=== PATIENT | male | born 1990 | race Caucasian/White ===

== ENCOUNTER 2021-07-09 14:47 | Emergency (ER) | payer BC, SELFPAY ==
--- NOTE | 2021-07-09 14:47 | ECG_ITS ---
APPROVED REPORT Exam: Resting ECG HR:72 bpm ECG Measurements Heart Rate 72 AXES NJ 134 P 19 QRSd 88 QRS 27 QT 388 T -4 QTc 424 Conclusion Normal sinus rhythm Possible Inferior infarct, age undetermined Abnormal ECG Electronically signed by : Frankie Alegria MD 07/11/2021 12:20:33
[2021-07-09 15:13] VITALS: BP 121/72; PULSE 66; RESP 14; O2SAT 99; BMI 33.3
[2021-07-09 16:31] VITALS: BP 112/83; PULSE 59; RESP 22; O2SAT 96
--- NOTE | 2021-07-09 16:34 | XR_ITS ---
PROCEDURE INFORMATION: Exam: XR Chest Exam date and time: 07/09/2021 4:34 PM Age: 31 years old Clinical indication: Sternal or substernal pain; Patient HX: Patient awoke with sharp chest pain this morning. No chest surgeries, non-smoker. Prior HX of hypertension per patient. TECHNIQUE: Imaging protocol: XR of the chest. Views: 2 views. COMPARISON: No relevant prior studies available. FINDINGS: Lungs: Unremarkable. No consolidation. Pleural spaces: Unremarkable. No pleural effusion. No pneumothorax. Heart/Mediastinum: Unremarkable. No cardiomegaly. Bones/joints: Unremarkable. IMPRESSION: No acute findings.
[2021-07-09 16:52] LABS: Basophils # 0.1 K/mm3 (0-0.2); Basophils % 1.9 % (0.1-2.0); Eosinophils # 0.1 K/mm3 (0.0-0.4); Eosinophils % 2.1 % (0.1-12.0); Hematocrit 40.8 % (42.0-52.0); Hemoglobin 14.2 g/dL (14.1-18.0); Lymphocytes # 2.2 K/mm3 (0.7-4.5); Lymphocytes % 36.4 % (10-50); Mean Corpuscular HGB Conc 34.8 g/dL (31.8-35.4); Mean Corpuscular Hemoglobin 30.5 pg (27.0-31.2); Mean Corpuscular Volume 87.6 fl (80-94); Mean Platelet Volume 8.8 fl (7.4-10.4); Monocytes # 0.4 K/mm3 (0.1-1.0); Monocytes % 6.8 % (1.7-9.3); Neutrophils # 3.2 K/mm3 (1.8-7.8); Neutrophils % 52.8 % (37.0-80.0); Platelet Count 315 K/mm3 (142-424); Red Blood Count 4.66 M/mm3 (4.60-6.20)
[2021-07-09 17:00] VITALS: BP 129/70; PULSE 62; RESP 18; O2SAT 98
--- NOTE | 2021-07-09 17:08 | HMH.EDGENADL ---
ED Disposition Clinical Impression: Atypical chest pain Disposition: Home, Self-Care Condition on Discharge: Good Instructions: DI for Atypical Chest Pain Additional Instructions: Ibuprofen for pain. Additional instructions for CHEST PAIN: See your physician as soon as possible for further evaluation. Return immediately if worsening chest pain, vomiting, shortness of breath, fever, coughing of blood. Referrals: Provider,Referral, [Primary Care Provider] - - Critical Care Critical Care Time: No Attestation: On 07/09/21, the high probability of a clinically significant, sudden or life threatening deterioration of the following system(s) required my full and direct attention, intervention and personal management. The time I documented below is in addition to time spent performing reported procedures but includes the following listed in this critical care notation. Medical Decision Making - Alexys Inquiry Pt receiving controlled substance: No Vital Signs: 07/09/21 15:13 07/09/21 16:31 07/09/21 17:00 Pulse Rate 59 L 62 Pulse Rate [Left] 66 Respiratory Rate 14 22 18 Blood Pressure 112/83 129/70 Blood Pressure [Right Arm] 121/72 Blood Pressure Mean 86 95 Blood Pressure Mean [Right Arm] 88 02 Sat by Pulse Oximetry 99 96 98 - Lab Data Lab Results 07/09/21 15:11: WBC 6.0, RBC 4.66, Hgb 14.2, Hct 40.8 L, MCV 87.6, MCH 30.5, MCHC 34.8, RDW 13.0, Plt Count 315, MPV 8.8, Neut % (Auto) 52.8, Lymph % (Auto) 36.4, Barnes % (Auto) 6.8, Eos % (Auto) 2.1, Baso % (Auto) 1.9, Neut # (Auto) 3.2, Lymph # (Auto) 2.2, Barnes # (Auto) 0.4, Eos # (Auto) 0.1, Baso # (Auto) 0.1 07/09/21 15:11: Sodium 138, Potassium 4.3, Chloride 103, Carbon Dioxide 30, Anion Gap 9.3, BUN 13, Creatinine 1.00, Estimated Creat Clear 182, Estimated GFR 88, Est GFR ( Amer) 107, Glucose 86, Calcium 8.8, Troponin I < 0.01 07/09/21 18:15: Troponin I < 0.01 Result diagrams: 07/09/21 15:11 07/09/21 15:11 Orders (Tests/Meds): ED MEDICATIONS Discontinued Medications Generic Name Dose Route Start Last Admin Trade Name Ray PRN Reason Stop Dose Admin Aspirin 324 mg 07/09/21 16:35 07/09/21 16:38 Aspirin 81mg Chewable Tablet PO 07/09/21 16:36 324 mg ONCE ONE Administration ORDERS Category Date Time Status Troponin I Q3H Lab 07/09/21 22:45 Ordered - Radiology Data #1 Image(s): Chest Image Reviewed: Yes I reviewed the patient's radiology image, Yes I have reviewed radiologist's interpretation PROCEDURE INFORMATION: Exam: XR Chest Exam date and time: 07/09/2021 4:34 PM Age: 31 years old Clinical indication: Sternal or substernal pain; Patient HX: Patient awoke with sharp chest pain this morning. No chest surgeries, non-smoker. Prior HX of hypertension per patient. TECHNIQUE: Imaging protocol: XR of the chest. Views: 2 views. COMPARISON: No relevant prior studies available. FINDINGS: Lungs: Unremarkable. No consolidation. Pleural spaces: Unremarkable. No pleural effusion. No pneumothorax. Heart/Mediastinum: Unremarkable. No cardiomegaly. Bones/joints: Unremarkable. IMPRESSION: No acute findings. - ECG Data Tracing #1 EKG interpreted by Christiano Mast MD: Rhythm: sinus Rate: 72 [place]: normal Ectopy: none Conduction: normal ST Segment Changes: none T Wave Changes: Nonspecific Q Waves: none No prior EKGs available for comparison. - NORA Score for Non-Stemi Age of Patient: <30 years old Heart Rate: 50-69 bpm Systolic Blood Pressure: 120-139 mmhg Serum Creatinine: 0.80-1.19 mg/dl CHF [place] Class: I-No CHF Other Risk Factors: None Non-Stemi Risk Score: 44 Medical Decision Narrative: 7:09 PM: Patient says he feels good, would like to be discharged. Second troponin is negative. Chest pain is atypical. I feel he can be discharged for outpatient follow-up. General Adult HPI
[2021-07-09 17:17] LABS: Anion Gap 9.3 mEq/L (5-15); Blood Urea Nitrogen 13 mg/dl (9-20); Calcium 8.8 mg/dl (8.4-10.2); Carbon Dioxide 30 mmol/L (22.0-30.0); Chloride 103 mmol/L (98-107); Creatinine Clearance Estimated 182 mL/min (50-200); Estimated Glomerular Filt Rate 88 ml/min (>60); GFR (African American) 107 ML/MIN (>60); Glucose 86 mg/dl (74-100); Potassium 4.3 mmoL/L (3.5-5.1); Sodium 138 mmol/L (136-145)
[2021-07-09 17:29] LABS: Troponin I < 0.01 ng/ml (0.00-0.034)
--- NOTE | 2021-07-09 18:18 | PC.NURSE ---
2ND TROP SENT TO LAB
[2021-07-09 19:00] LABS: Troponin I < 0.01 ng/ml (0.00-0.034)
[2021-07-09 19:23] VITALS: BP 106/58; PULSE 57; RESP 20; TEMP 36.7; O2SAT 98
== END 2021-07-09 19:24 | disposition home or self-care (01) ==
PROVIDERS: Emergency Provider Emergency Medicine
DX: R07.89 Other chest pain (principal); R42 Dizziness and giddiness
CPT/HCPCS: 71046; 80048; 84484; 85025; 93005; 99283

== ENCOUNTER 2021-09-05 19:20 | Emergency (ER) | payer BC, SELFPAY ==
[2021-09-05 20:40] VITALS: BP 117/71; PULSE 107; RESP 20; TEMP 38.3; O2SAT 97; BMI 33.3
[2021-09-05 20:58] LABS: UTC Influenza A Antigen Negative (Negative)
[2021-09-05 20:59] LABS: UTC Influenza B Antigen Negative (Negative); UTC Strep Screen (Rapid) Negative (Negative)
--- NOTE | 2021-09-05 21:26 | HMH.EDUTC ---
[facility] – [place] Disposition Clinical Impression: Viral syndrome Disposition: Home, Self-Care Condition on Discharge: Good Instructions: DI for Viral Syndrome, DI for COVID-19 (Suspected or Confirmed ), Preventing the Spread of Coronavirus Discharge Instructions Additional Instructions: *Monitor Temp, Over the counter Motrin or Tylenol as directed/as needed Tylenol every 4 hours and Motrin every 6 hours (as long as your family doctor has told you that you can take it) for fever or pain. and straight to ER if unable to lower temp less than 101.0 after medication given *Warm salt water gargles may help to soothe the throat *Throat Lozenges *Warm fluids like tea with honey may help to soothe the throat *Sleep elevated *Humidifier/Vaporizer Your throat swab was sent for culture. Those results are typically sent to your primary care. Be sure to follow up in 2-3 days with your family doctor/primary care physician if no improvement so they can review those result and treat if necessary. If you don?t have a primary care doctor, I recommend you get one but in the mean time, you will have to return to a walk in clinic Follow up IMMEDIATELY for new or worsening symptoms or no Noticeable improvement over the next 48-72 hours. 911 for difficulty breathing or swallowing You were tested for today for COVID19 your test result should be back in the next 24-48 hours, you may check your COVID test result on the [facility] My Health Portal if you have trouble logging on you may call support for assistance You was given a handout with instructions for Self Quarantine and Self isolation for while you wait on test results and what to do if they are positive If you are positive the Health Dept will be contacting you also Make sure to take your Vitamins Vit. C Vit D and Zinc if you can take them Referrals: Provider,Referral, [Primary Care Provider] - As needed Forms: Work/School Release Medical Decision Making - Alexys Inquiry Pt receiving controlled substance: No Alexys was queried for this patient: No Vital Signs: 09/05/21 20:40 Temperature 100.9 F H Temperature Source Oral Pulse Rate [Right Brachial] 107 H Respiratory Rate 20 Blood Pressure [Right Arm] 117/71 Blood Pressure Mean [Right Arm] 86 Blood Pressure Source [Right Arm] Automatic Cuff Blood Pressure Position [Right Arm] Sitting 02 Sat by Pulse Oximetry 97 Oxygen Delivery Method Room Air - Lab Data Lab results reviewed: Yes: I reviewed the patient's lab results. Lab Results 09/05/21 20:50: Strep Scn Rapid Clinic Negative 09/05/21 20:50: Influenza Type A Ag Negative, Influenza Type B Ag Negative Orders (Tests/Meds): ORDERS Category Date Time Status Covid-19 Nasal PCR ([facility]) Routine Lab 09/05/21 20:46 Received Strep Screen Confirmation Routine Micro 09/05/21 20:50 Received [facility] UTC HPI - General Stated complaint: SORE THROAT,NAUSA Time Seen by Provider: 09/05/21 21:26 Mode of Arrival: Ambulatory Source of Information: Patient Limitations: No Limitations Description of Symptoms (Recalled from Triage Doc. by RN): PATIENT C/O FEVER, FATIGUE, AND SORE THROAT SINCE YESTERDAY HEENT Symptoms (Recalled from RN notes): Yes Resp Symptoms (Recalled from RN notes): Yes Skin Symptoms (Recalled from RN notes): No MS Symptoms (Recalled from RN notes): No Functional Status (Recalled from RN notes): WNL - History of Present Illness Provider Complaint: Patient states that he has been feeling tired and achy all day having sore throat and headache and fever State that he has not been around anyone that he is aware of with COVID but due to symptoms wanted to get tested - Related Data Allergies Allergy/AdvReac Type Severity Reaction Status Date / Time No Known Allergies Allergy Verified 07/09/21 16:33 - Worker's Comp Is this a Worker's Comp case?: No [facility] History - Hepatitis A Screen Drug use history?: No High risk sexual behaviors?: No History of sexually transmitted
[2021-09-05 21:27] VITALS: BP 117/71; PULSE 107; RESP 20; TEMP 38.3; O2SAT 97
== END 2021-09-05 21:30 | disposition home or self-care (01) ==
PROVIDERS: Emergency Provider Nurse Practitioner
DX: B34.9 Viral infection, unspecified (principal); R50.9 Fever, unspecified; J02.9 Acute pharyngitis, unspecified
CPT/HCPCS: 87804; 87880; 99203; C9803; G0463; U0003; U0005